=== PATIENT | female | born 1965 | race Caucasian/White ===

== ENCOUNTER 2016-04-07 13:11 | Emergency (ER) | payer OTHER, MEDICAID ==
[~2016-04-07] VITALS: Ht 162.6 cm; Wt 85.3 kg
[~2016-04-07 13:11] MED LIST: ALBUTEROL0.09 MG/A1 IH; CLONIPINE; DEPAKOTE; LEXAPRO; LIPITOR; LIPITOR10 MG PO; NEXIUM; SEROQUEL; SINGULAIR; TOPROL XL25 MG PO
[2016-04-07 13:22] VITALS: BP 158/102
--- NOTE | 2016-04-07 13:46 | NUR ---
PATIENT PRESENTS TO ED WITH SOB X4DAYS, "TROUBLE WITH MY ASTHMA", UNRELIEVED BY INHALER. RLQ ABD PAIN X4 DAYS, 12/12, N/V X3 TODAY;Hx: ASTHMA, SEIZURES, DIVERTICULOSIS, GERD .SKIN IS PINK/WARM/DRY; AAOX4 WITH EVEN AND STEADY GAIT; LUNGS BILATERAL WHEEZES; HR EVEN AND REGULAR; PT DENIES CP;PRODUCTIVE COUGH NOTED; PATIENT STATES ABDOMINAL PAIN OF 10/10 AT THIS TIME; PATIENT POSITIONED FOR COMFORT; HOB ELEVATED; BEDRAILS UP X2; BED DOWN. ER MD MADE AWARE OF PT STATUS.
[2016-04-07] MEDS ORDERED: ALBUTEROL SULFATE/IPRATROPIU 3 ML SOL IH ONE (14:20)
[2016-04-07] MEDS ORDERED: MORPHINE SULFATE 4 MG/ML SYR IVP ONE (14:20)
[2016-04-07] MEDS ORDERED: methylPREDNISolone SS 125 MG in WATER STERILE 2 ML IV ONE (14:25)
--- NOTE | 2016-04-07 14:28 | NUR ---
PT FOR CHEST X RAY VIA WHEELCHAIR, PT AAO, NO SOB NOTED.
--- NOTE | 2016-04-07 15:21 | NUR ---
BREATHING TX ONGOING
--- NOTE | 2016-04-07 16:18 | NUR ---
PT LYING IN BED COMFORTABLY.AAOX4. NO ACUTE DISTRESS NOTED.SAFETY PRECAUTION INSTITUTED.WILL CONTINUE TO MONITOR PT.
--- NOTE | 2016-04-07 17:33 | NUR ---
WENT TO CT VIA KIMBERLY, PT CHERRYO
--- NOTE | 2016-04-07 18:41 | NUR ---
PT AAO, NO SOB NOTED, PT EATING SANDWHICH AT THIS TIME, SKIN WARM TO TOUCH RESP. EVEN AND UNLABORED.
--- NOTE | 2016-04-07 19:07 | NUR ---
Patient discharged with v/s stable. Written and verbal after care instructions given and explained. Patient alert, oriented and verbalized understanding of instructions. Ambulatory with steady gait. All questions addressed prior to discharge. ID band removed. Patient advised to follow up with PMD. Rx of PREDNISONE AND ALBUTEROL given. Patient educated on indication of medication including possible reaction and side effects. Opportunity to ask questions provided and answered.
[2016-04-07 19:08] VITALS: BP 133/68
== END 2016-04-07 19:08 | disposition home or self-care (01) ==
LOC: MED 13:11
DX: J45.901 Unspecified asthma with (acute) exacerbation (principal); R10.31 Right lower quadrant pain; R11.2 Nausea with vomiting, unspecified; J44.9 Chronic obstructive pulmonary disease, unspecified; Z88.1 Allergy status to other antibiotic agents; Z88.5 Allergy status to narcotic agent; Z88.6 Allergy status to analgesic agent; Z91.018 Allergy to other foods
CPT/HCPCS: 36415; 71020; 74177; 80053; 81002; 81025; 83690; 84484; 85025; 93005; 94640; 96374; 96375; 99285; J2270; J2930; J7620; Q9967

== ENCOUNTER 2016-04-17 14:28 | Emergency (ER) | payer OTHER, MEDICAID ==
[~2016-04-17] VITALS: Ht 162.6 cm; Wt 85.3 kg
[2016-04-17 15:23] VITALS: BP 112/66
--- NOTE | 2016-04-17 18:47 | NUR ---
Patient to bed 04.
--- NOTE | 2016-04-17 18:58 | NUR ---
PATIENT PRESENTS TO ED WITH C/O COUGHING,SOB, WHEEZING, WAS HERE LAST FEB 3 FOR ASTHMA, HX HTN, HIGH CHOLESTEROL, ASTHMA, COPD, HEART MURMUR, STOMACH PROBLEM; DENIES N/V/D; SKIN IS PINK/WARM/DRY; AAOX4 WITH EVEN AND STEADY GAIT; LUNGS CLEAR BL; HR EVEN AND REGULAR; PT DENIES ANY FEVER, CP, SOB, OR COUGH AT THIS TIME; PATIENT STATES PAIN OF 0/10 AT THIS TIME; VSS; PATIENT POSITIONED FOR COMFORT; HOB ELEVATED; BEDRAILS UP X2; BED DOWN. ER MD MADE AWARE OF PT STATUS.
--- NOTE | 2016-04-17 19:39 | NUR ---
REPORT GIVEN TO STEVEN QUEEN
--- NOTE | 2016-04-17 19:42 | NUR ---
PT RESTING IN BED, SLIGLTY WHEEZES NOTED ON BILATERAL UPPER LUNGS. ER MD AND RT NOTIFIED.
[2016-04-17] MEDS ORDERED: methylPREDNISolone SS 125 MG in WATER STERILE 2 ML IM ONE (19:55)
[2016-04-17] MEDS ORDERED: ALBUTEROL 0.083% 2.5 MG/3 ML NEBU INH ONE (19:55)
[2016-04-17 20:43] VITALS: BP 142/87
--- NOTE | 2016-04-17 20:43 | NUR ---
Patient discharged with v/s stable. Written and verbal after care instructions given and explained. Patient alert, oriented and verbalized understanding of instructions. Ambulatory with steady gait. All questions addressed prior to discharge. ID band removed. Patient advised to follow up with PMD. Rx of PREDNISONE,CIPRO, AND QVAR given. Patient educated on indication of medication including possible reaction and side effects. Opportunity to ask questions provided and answered.
== END 2016-04-17 20:43 | disposition home or self-care (01) ==
LOC: MED 14:28
DX: J20.9 Acute bronchitis, unspecified (principal); R03.0 Elevated blood-pressure reading, without diagnosis of hypertension; J45.909 Unspecified asthma, uncomplicated; J44.9 Chronic obstructive pulmonary disease, unspecified; Z88.1 Allergy status to other antibiotic agents; Z88.6 Allergy status to analgesic agent; Z91.018 Allergy to other foods
CPT/HCPCS: 71010; 94640; 94664; 96372; 99283; J2930; J7613; Q0092